=== PATIENT | male | born 1975 | race Caucasian/White ===

== ENCOUNTER 2023-03-14 09:16 | Emergency (ER) | payer MEDICAID ==
[2023-03-14 10:39] LABS: BASOPHILS ABSOLUTE AUTO 0.05 K/uL (0.00-0.10); BASOPHILS PERCENT AUTO 0.4 % (0.1-1.3); EOSINOPHILS ABSOLUTE AUTO 0.18 K/uL (0.00-0.40); EOSINOPHILS PERCENT AUTO 1.6 % (0.0-5.4); IMMATURE GRAN PERCENT AUTO 0.9 % (0.0-0.7); LYMPHOCYTES ABSOLUTE AUTO 1.52 K/uL (0.8-3.3); LYMPHOCYTES PERCENT AUTO 13.5 % (11.4-47.7); MEAN CORPUSCULAR HEMOGLOBIN 29.7 pg (31.6-35.5); MEAN CORPUSCULAR HGB CONC 35.3 g/dL (31.6-35.5); MONOCYTES ABSOLUTE AUTO 1.99 K/uL (0.20-0.90); MONOCYTES PERCENT AUTO 17.7 % (3.3-12.6); NEUTROPHILS ABSOLUTE AUTO 7.38 K/uL (1.0-7.6); NEUTROPHILS PERCENT AUTO 65.9 % (40.0-78.1); PLATELET COUNT,PLT 296 K/uL (130-375); RED BLOOD CELL COUNT 6.07 M/uL (4.14-5.76); WHITE BLOOD CELL COUNT,WBC 11.2 K/uL (3.2-11.0)
[2023-03-14] MEDS ORDERED: Iopamidol 612 MG/ML 100 ML Bottle IV SCH (10:45)
[2023-03-14] MEDS ORDERED: Sodium Chloride 0.9% 50 ML IV SCH (10:45)
[2023-03-14 10:58] LABS: A/G RATIO 0.8 (1.2-2.2); ALANINE AMINOTRANSFERASE,ALT 20 U/L (12-78); ALBUMIN 3.6 g/dL (3.4-5.0); ALKALINE PHOSPHATASE 98 U/L (46-116); ASPARTATE AMNIOTRANSFERASE,AST 10 U/L (15-37); BILIRUBIN TOTAL 0.8 mg/dL (0.2-1.0); BLOOD UREA NITROGEN,BUN 32 mg/dL (7-18); C-REACTIVE PROTEIN 10.86 mg/dL (0.0-0.3); CARBON DIOXIDE,CO2 24 mmol/L (21-32); CHLORIDE,CL 97 mmol/L (100-108); CREATININE 1.3 mg/dL (0.8-1.3); EST CRCL DRUG DOSING (CG) 72.53 mL/min; ESTIMATED GFR 68 mL/min (>60); GLUCOSE RANDOM 123 mg/dL (74-106); POTASSIUM,K 3.5 mmol/L (3.6-5.2); PROTEIN TOTAL,TP 8.3 g/dL (6.4-8.2); SODIUM,NA 132 mmol/L (140-148)
[2023-03-14 11:03] LABS: ANION GAP 14.5 mmol/L (5.0-14.0)
[2023-03-14] MEDS ORDERED: Sodium Chloride 0.9% 1,000 ML IV ONE (11:11)
[2023-03-14 12:06] LABS: APPEARANCE,URINE SLIGHTLY CLOUDY (CLEAR); BILIRUBIN,URINE NEGATIVE (NEGATIVE); COLOR,URINE YELLOW (YELLOW); GLUCOSE,URINE NEGATIVE (NEGATIVE); KETONES,URINE TRACE mg/dL (NEGATIVE); LEUKOCYTE ESTERASE,URINE NEGATIVE (NEGATIVE); NITRITE,URINE NEGATIVE (NEGATIVE); OCCULT BLOOD,URINE NEGATIVE (NEGATIVE); PH,URINE 5.5 (5.0-8.0); PROTEIN,URINE 30 mg/dL (NEGATIVE); UROBILINOGEN,URINE 0.2 EU/dL (0.2-1.0)
[2023-03-14 12:08] LABS: AMORPHOUS SEDIMENT,URINE FEW; BACTERIA,URINE NOT SEEN; EPITHELIAL CELLS,URINE NOT SEEN; MUCUS,URINE MODERATE; RBC,URINE NOT SEEN (0-5); WBC,URINE 0-5 (0-5)
== END 2023-03-14 12:50 | disposition left against medical advice (07) ==
LOC: JP.ED 09:16
DX: K56.609 Unspecified intestinal obstruction, unspecified as to partial versus complete obstruction (principal); I25.2 Old myocardial infarction; Z72.0 Tobacco use
CPT/HCPCS: 36415; 74177; 80053; 81001; 85025; 86140; 96360; 99284; J3490; J7030; Q9967